=== PATIENT | male | born 1985 | race Two or more races ===

== ENCOUNTER 2021-08-26 09:28 | Outpatient (REF) | payer MEDICAID, SELFPAY ==
--- NOTE | ~2021-08-26 | XR_ITS ---
EXAMINATION: XR HAND, RIGHT CLINICAL INFORMATION: Status post fall, swelling and TTP over the right fourth and fifth metacarpal. COMPARISON: None TECHNIQUE: PA, lateral, and oblique views of the right hand. FINDINGS: There is a nondisplaced fracture base of fourth metacarpal. No additional fracture seen. The joint spaces are maintained normal. The soft tissues are normal. XR/XR hand RT min 3V IMPRESSION: Nondisplaced fracture base of fourth metacarpal.
== END 2021-08-26 09:29 | disposition home or self-care (01) ==
LOC: HO.XRAY 09:28
PROVIDERS: Absent Provider Internal Medicine; PCP Internal Medicine; Visit Provider Emergency Medicine
DX: M79.641 Pain in right hand (principal)
CPT/HCPCS: 73130

== ENCOUNTER 2022-04-15 03:25 | Emergency (ER) | payer MEDICAID, SELFPAY ==
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
[2022-04-15 04:05] VITALS: BP 128/82; PULSE 89; RESP 20; TEMP 36.7; O2SAT 97; BMI 19.8
[2022-04-15 07:29] VITALS: BP 122/71; PULSE 59; RESP 18; TEMP 36.4; O2SAT 95
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
[2022-04-15 09:04] VITALS: BP 125/73; PULSE 72; RESP 18; TEMP 36.2; O2SAT 99
== END 2022-04-15 09:08 | disposition home or self-care (01) ==
PROVIDERS: Emergency Provider Emergency Medicine
DX: S20.212A Contusion of left front wall of thorax, initial encounter (principal); V43.62XA Car passenger injured in collision with other type car in traffic accident, initial encounter; M54.2 Cervicalgia; F17.200 Nicotine dependence, unspecified, uncomplicated; Y93.89 Activity, other specified; Y92.414 Local residential or business street as the place of occurrence of the external cause; Y99.9 Unspecified external cause status
CPT/HCPCS: 71101; 99283

== ENCOUNTER 2023-09-03 10:55 | Outpatient (REF) | payer MEDICAID, SELFPAY ==
[2023-09-03 14:19] LABS: Cholesterol 139 mg/dL (<200); HDL Cholesterol 53 mg/dL (>40); LDL Cholesterol Calculated 70 mg/dL (<100); Triglycerides 82 mg/dL (<150)
[2023-09-03 14:38] LABS: Alanine Aminotransferase 22 U/L (0-40); Albumin Level 4.3 g/dL (3.5-5.0); Alkaline Phosphatase 79 U/L (39-117); Anion Gap 12 (12-20); Aspartate Amino Transferase 21 U/L (5-37); Bilirubin Total 0.3 mg/dL (0.0-1.0); Blood Urea Nitrogen 16 mg/dL (9-16); Calcium 9.6 mg/dL (8.4-10.2); Carbon Dioxide 26 mmol/L (22-29); Chloride 107 mmol/L (96-108); Estimated Glomerular Filt Rate > 60; Glucose Random 114 mg/dL (60-115); Potassium 4.2 mmol/L (3.3-5.1); Sodium 141 mmol/L (135-145); Total Protein 7.8 g/dL (6.5-8.0)
[2023-09-03 14:40] LABS: Estimated Average Glucose 108 mg/dL; Hemoglobin A1c % 5.4 % (<6.0)
[2023-09-03 14:52] LABS: TSH reflex Free T4 0.34 uIU/mL (0.32-4.0)
[2023-09-03 17:04] LABS: Reflex LDLD? No
== END 2023-09-03 10:56 | disposition home or self-care (01) ==
LOC: HO.HHCL 10:55
PROVIDERS: Visit Provider Family Medicine
DX: R03.0 Elevated blood-pressure reading, without diagnosis of hypertension (principal)
CPT/HCPCS: 36415; 80053; 80061; 83036; 84443

== ENCOUNTER 2023-10-07 09:59 | Outpatient (AMB) | payer MEDICAID, SELFPAY ==
--- NOTE | 2023-10-07 10:05 | MHC.OFFVIS ---
Intake Vital Signs 10/07/23 10:14 Weight 185 lb BP 137/89 Blood Pressure Location Lt brachial Position Sitting Pulse 94 Intake Visit Reasons: epidermal cyst Intake Note: This patient presents for an assessment for epidermal cyst. Patient c/o; reports no complaints at this time. Travelers' Aid Worker Required: No Accompanied by: Other Relationship Allergies acetaminophen [From TYLENOL] Allergy (Unknown, Unverified 10/07/23 10:15) HIVES, THROAT SWELLING HPI epidermal cyst HPI Details 38-year-old male referred for an epidermal cyst. [facility] Medical History (Updated 10/07/23 @ 10:19 by Ezio Benavidez MD) Epidermoid cyst of face No pertinent past medical history Social History (Updated 04/15/22 @ 07:45 by Nikole Llamas DO) Patient Tobacco Use Status: Current everyday Tobacco user Review of Systems Const Denies chills and Denies fever(s) Card Denies chest pain, Denies dyspnea and Denies dyspnea on exertion Resp Denies cough, Denies dyspnea and Denies dyspnea on exertion GI Denies hematochezia and Denies change in bowel habits Denies hematuria and Denies difficulty urinating Musc Denies back pain and Denies limited range of motion Neuro Denies focal weakness and Denies convulsions Psych Denies depression and Denies mood swings Physical Exam Const General: comfortable and no acute distress Orientation/consciousness: patient oriented x3 HEENT Other: Right preauricular area note of a well-defined epidermal inclusion cyst, about 1.8 cm in diameter, fairly mobile Neck Neck: Yes no lymphadenopathy Resp Auscultation: clear to auscultation bilaterally Cardio Rhythm: regular rhythm GI Palpation (GI): Soft to palpation, nontender and no guarding Neuro General: patient oriented x3 Assessment & Plan Assessment & Plan (1) Epidermoid cyst of face: Code(s): L72.0 - Epidermal cyst Plan: He has a preauricular cyst as described above. This is very mobile and is consistent with an epidermal inclusion cyst.I explained the option of proceeding with excision. I explained the technique of excision under local anesthesia. I reviewed the risks including but not limited to bleeding and infections, as well as the benefits and alternatives. He wants to proceed. This will be scheduled here in the office under local anesthesia. Coding Level of Care Code New Pt Level 3 (10165) Diagnoses Epidermoid cyst of face L72.0
[2023-10-07 10:14] VITALS: BP 137/89; PULSE 94
== END 2023-10-07 10:31 | disposition home or self-care (01) ==
PROVIDERS: PCP Family Medicine; Visit Provider Surgery
DX: L72.0 Epidermal cyst (principal)
CPT/HCPCS: 99203

== ENCOUNTER → 2023-10-07 09:59 | Outpatient (BNVA) | payer MEDICAID, SELFPAY | PROVIDERS: PCP Family Medicine; Visit Provider Surgery | DX: L72.0 Epidermal cyst (principal) | CPT/HCPCS: 99202 ==

== ENCOUNTER 2024-01-01 15:00 | Emergency (ER) | payer MEDICAID, SELFPAY ==
--- NOTE | 2024-01-01 15:05 | ED.GENADULT ---
HPI - General Adult General Chief complaint: Abdominal Pain Stated complaint: ULQ PAIN Time Seen by Provider: 01/01/24 15:20 Related Data Home Medications ?Medication ?Instructions ?Recorded ?Confirmed quetiapine 25 mg tablet 25 mg PO BEDTIME 10/07/23 varenicline 1 mg tablet 1 mg PO BID 10/07/23 Previous Rx's ?Medication ?Instructions ?Recorded cyclobenzaprine 10 mg tablet 10 mg PO TID PRN muscle spasm #14 04/15/22 tabs lidocaine 5 % topical patch 1 patch topical DAILY #30 ea 04/15/22 Allergies Allergy/AdvReac Type Severity Reaction Status Date / Time acetaminophen [From TYLENOL] Allergy Unknown HIVES, Unverified 10/07/23 10:15 THROAT SWELLING PMFSH Past Medical History Medical History (Updated 01/10/24 @ 11:51 by MOLLY Benjamin) Epidermoid cyst of face No pertinent past medical history Social History Social History Patient Tobacco Use Status: Current everyday Tobacco user Advance Directives: No Advance Directives Information Provided: No Physical Exam ED Vital Signs: BMI result Body Mass Index 27.8 Course Course Course Narrative: This is an RME: Additional HPI, ROS, PE not included below will be deferred to primary provider. 38 year old male presnts w/ LUQ pain reports kidney is exploding and leaking bile inside X 2 days. Comes in by ambulance. Screaming in the waiting room that this place sucks, and that he would rather go somewhere else. Plan- labs, urine appropriate to go back to the waiting room. Discharge Plan Discharge Clinical Impression: Eloped from emergency department Patient Disposition: Left W/O Completing Treatment Prescriptions: No Action cyclobenzaprine 10 mg tablet 10 mg PO TID PRN (Reason: muscle spasm) Qty: 14 0RF lidocaine 5 % adhesive patch,medicated 1 patch topical DAILY Qty: 30 0RF Rx Instructions: leave on most painful area for up to 12 hrs quetiapine 25 mg tablet 25 mg PO BEDTIME varenicline 1 mg tablet 1 mg PO BID Discharge Date/Time: 01/01/24 15:51
[2024-01-01 15:11] VITALS: BP 154/82; BP 158/84; PULSE 108; PULSE 80; RESP 20; TEMP 36.8; O2SAT 95; O2SAT 96; BMI 27.8
--- NOTE | 2024-01-01 15:21 | PC.NURSE ---
Patient was screaming and belligerent because he wanted to be put in a bed. States he's leaving to go to [facility] because it's a much better hospital.
== END 2024-01-01 15:51 | disposition left against medical advice (07) ==
LOC: HO.ED 15:25
PROVIDERS: Emergency Provider Emergency Medicine
DX: R10.12 Left upper quadrant pain (principal); F17.210 Nicotine dependence, cigarettes, uncomplicated; Z53.21 Procedure and treatment not carried out due to patient leaving prior to being seen by health care provider
CPT/HCPCS: 99281

== ENCOUNTER 2024-08-23 16:04 | Outpatient (REF) | payer MEDICAID, SELFPAY ==
[2024-08-24 03:59] LABS: Syphilis Screen Reactive (Nonreactive)
[2024-08-24 04:18] LABS: HBS Num1 519.99 mIU/mL (0-7.99); HBc Num1 0.15 S/CO (0.00-0.79); HBsAGNum1 0.42 S/CO (0.00-0.99); HIV AB/AG Nonreactive (Nonreactive); HIV Num 1 0.05 S/CO (0.00-0.99); Hepatitis A Antibody IgM 0.16 Index (0-0.79); Hepatitis B Core Antibody Nonreactive (Nonreactive); Hepatitis B Surface Antigen Negative (Negative); ~HepC Num1 0.15 S/CO (0.00-0.79); ~Hepatitis A Antibody IgM Nonreactive (Nonreactive); ~Hepatitis B Surface Antibody REACTIVE (Nonreactive); ~Hepatitis C Antibody Nonreactive (Nonreactive)
[2024-08-24 06:56] LABS: CT PCR NOT DETECTED (Not Detect.); NG PCR NOT DETECTED (Not Detect.)
[2024-08-31 15:08] LABS: RPR Quantitative Non-Reactive (Nonreactive); T.Pallidum Particle Agg Test Reactive (Nonreactive)
== END 2024-08-23 16:05 | disposition home or self-care (01) ==
LOC: HO.HHCL 16:04
PROVIDERS: Internal Medicine; Visit Provider Family Medicine
DX: Z20.2 Contact with and (suspected) exposure to infections with a predominantly sexual mode of transmission (principal); Z11.3 Encounter for screening for infections with a predominantly sexual mode of transmission; Z11.59 Encounter for screening for other viral diseases
CPT/HCPCS: 36415; 86592; 86704; 86706; 86709; 86780; 86803; 87340; 87389; 87491; 87591

== ENCOUNTER 2024-10-26 14:33 | Outpatient (AMB) | payer MEDICAID, SELFPAY ==
[2024-10-26 14:49] VITALS: BMI 27.7
--- NOTE | 2024-10-26 14:49 | A.OFFVIS_ITS ---
Vital Signs 10/26/24 14:49 Height 5 ft 7 in Weight 177 lb BMI 27.7 Intake Visit Reasons: COMMUNICATIONS COORDINATOR-Bilateral carpal tunnel syndrome Intake Note: Royce 39 yr old right hand dominant male presents today for bilateral hands. States his right is worse. States he has CTS, worse in the night time. He takes tramadol to help with pain but helps very little. States this wakes him up at night. He has tried braces with little help. No EMG done. Allergies acetaminophen [From TYLENOL] Allergy (Unknown, Unverified 10/26/24 14:52) HIVES, THROAT SWELLING HPI HPI COMMUNICATIONS COORDINATOR-Bilateral carpal tunnel syndrome: Details: Patient is a 39 yr old right hand dominant male presents today for numbness and tingling/pain of bilateral hands. States his right is worse. States he has CTS, worse in the night time. He takes tramadol to help with pain but helps very little. States this wakes him up at night. He has tried braces with little help. No EMG done. [facility] Medical History (Updated 10/30/24 @ 09:22 by MOLLY Chao) Epidermoid cyst of face No pertinent past medical history Social History (Updated 10/26/24 @ 14:53 by Kori Ramirez [facility]) Patient Tobacco Use Status: Current everyday Tobacco user Current occupational status: disabled Current occupation: rt hand Review of Systems Const All systems reviewed & are unremarkable except as noted in HPI and below Physical Exam Vital Signs: BMI result Body Mass Index 27.7 Extrem Other: Neuro: Normal sensation of the tips of all digits of bilateral hands today No thenar or intrinsic wasting. Good APB muscle firing and good finger cross. Vascular: Capillary refill brisk. ROM: Patient can make a fist and extend all their digits. Skin: No lacerations or abrasions noted. General: No ecchymosis. No erythema or evidence of infection. Assessment & Plan Assessment & Plan (1) Numbness and tingling in both hands: Code(s): R20.0 - Anesthesia of skin; R20.2 - Paresthesia of skin Category: Medical Plan 1. Numbness and tingling of bilateral hands Patient does not have any EMG and nerve conduction study done Patient is referred for EMG and nerve conduction study to assess the health of the nerves of bilateral upper extremities Patient was amenable to this plan Patient was educated on the potential operative interventions if his EMG and nerve conduction study are positive, and states adamantly that he will need to be put to sleep for his surgery, as he is far too anxious to have the surgery performed under local anesthesia Patient was advised that as a discussion that can be had after his EMG and nerve conduction study Patient will follow-up after EMG and nerve conduction study for results review and discussion of further treatment options if indicated, sooner with any acute concerns Orders: Orders NE nerve conduction velocity 10/26/24 R20.0 - Anesthesia of skin, R20.2 - Paresthesia of skin NE electromyogram (EMG) 10/26/24 R20.0 - Anesthesia of skin, R20.2 - Paresthesia of skin Coding Level of Care Code New Pt Level 3 (22429) Diagnoses Numbness and tingling in both hands R20.0; R20.2
== END 2024-10-26 15:04 | disposition home or self-care (01) ==
DX: R20.0 Anesthesia of skin (principal); R20.2 Paresthesia of skin
CPT/HCPCS: 99203

== ENCOUNTER → 2024-10-26 14:33 | Outpatient (BNVA) | payer MEDICAID, SELFPAY | DX: R20.0 Anesthesia of skin (principal); R20.2 Paresthesia of skin | CPT/HCPCS: 99212 ==

== ENCOUNTER 2024-12-01 15:12 | Outpatient (REF) | payer MEDICAID, SELFPAY ==
--- NOTE | 2024-12-01 15:16 | EMG_ITS ---
Chief complaint: Bilateral hand pain and numbness Reason for referral: Evaluate for Carpal Tunnel Syndrome Referred by: Jose Elias BARNES Procedure done: Bilateral upper extremities NCS/EMG Precautions and/or limitations: Poor tolerance of needle The limb temperature was monitored continuously and remained between 32-36 degrees C during the performance of the NCS. Nerve Conduction Studies Anti Sensory Summary Table ?Stim Site NR Onset (ms) Norm Onset (ms) Peak (ms) Norm Peak (ms) O-P Amp (?V) Norm O-P Amp Site1 Site2 Delta-0 (ms) Dist (cm) Dequan (m/s) Norm Dequan (m/s) Left Median Anti Sensory (2nd Digit) Wrist ? 2.8 3.4 <3.6 31.0 >10 Wrist 2nd Digit 2.8 14.0 50 Right Median Anti Sensory (2nd Digit) Wrist ? 2.3 3.2 <3.6 50.9 >10 Wrist 2nd Digit 2.3 14.0 61 Left Ulnar Anti Sensory (5th Digit) Wrist ? 2.5 3.4 <3.7 51.9 >15.0 Wrist 5th Digit 2.5 14.0 56 Right Ulnar Anti Sensory (5th Digit) Wrist ? 2.4 3.3 <3.7 52.7 >15.0 Wrist 5th Digit 2.4 14.0 58 Motor Summary Table ?Stim Site NR Onset (ms) Norm Onset (ms) O-P Amp (mV) Norm O-P Amp iAmp (mV) Amp (1st) (%) Site1 Site2 Delta-0 (ms) Dist (cm) Dequan (m/s) Norm Dequan (m/s) Left Median Motor (Abd Poll Brev) Wrist ? 3.8 <3.9 12.5 >4.5 14.8 100.0 Elbow Wrist 4.1 23.0 56 >45 Elbow ? 7.9 12.4 14.7 99.2 Right Median Motor (Abd Poll Brev) Wrist ? 3.6 <3.9 9.3 >4.5 11.1 100.0 Elbow Wrist 4.4 23.0 52 >45 Elbow ? 8.0 7.6 9.2 81.7 Left Ulnar Motor (Abd Dig Minimi) Wrist ? 3.0 <3.0 9.4 >5 11.3 100.0 B Elbow Wrist 3.6 21.0 58 >45 B Elbow ? 6.6 9.3 11.2 98.9 A Elbow B Elbow 1.5 10.0 67 >45 A Elbow ? 8.1 9.2 11.3 97.9 Right Ulnar Motor (Abd Dig Minimi) Wrist ? 2.9 <3.0 6.4 >5 8.7 100.0 B Elbow Wrist 3.7 21.0 57 >45 B Elbow ? 6.6 6.4 8.5 100.0 A Elbow B Elbow 1.6 10.0 63 >45 A Elbow ? 8.2 6.1 8.0 95.3 Comparison Summary Table ?Stim Site NR Peak (ms) Norm Peak (ms) P-T Amp (?V) Site1 Site2 Delta-P (ms) Norm Delta (ms) Right Median/Radial Dig I Comparison (Digit 1 - 10cm) Median ? 2.9 <2.9 31.0 Median Radial 0.1 Radial ? 3.0 <2.8 85.7 EMG ?Side Muscle Nerve Root Ins Act Fibs Psw Amp Dur Poly Recrt Int Pat Comment Left 1stDorInt Ulnar C8-T1 Nml Nml Nml Nml Nml 0 Nml Complete Left FlexCarRad Median C6-7 Nml Nml Nml Nml Nml 0 Nml Complete Left Biceps Musculocut C5-6 Nml Nml Nml Nml Nml 0 Nml Complete Left Triceps Radial C6-7-8 Nml Nml Nml Nml Nml 0 Nml Complete Left Deltoid Axillary C5-6 Nml Nml Nml Nml Nml 0 Nml Complete FINDINGS: All motor and sensory nerves tested showed normal latencies, amplitudes and conduction velocities. Concentric needle EMG was performed in selected muscles of the left upper extremity. Study did not reveal signs of electric abnormalities as shown in the table above. Deferred needle on right side, poor tolerance of needle. IMPRESSION: 1. This is a normal study. 2. There is no electrodiagnostic evidence for median neuropathy, ulnar neuropathy, brachial plexopathy, or cervical radiculopathy. Thank you for your kind referral. Anisha Mortensen MD, SAUD Board Certified, [place] Board of [employer] Medicine and Rehabilitation (ABPMR) Board Certified, [place] Board of Electrodiagnostic Medicine (ABEM) [place] [address] [facility]
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
--- OUTSIDE RECORDS SUMMARY | 2024-12-01 17:19 | XMS_ITS | Encounter Summary ---
Author Organization [employer] Address [address] [place] [address] Care Team Providers Care Polygraph Operator Name Role Phone Cnadelaria Peck MD Primary Care Provider [phone] Reason for Visit * Reason Comments Recovery Supports Encounter Details Date Type Department Care Team ([facility] st Contact Info) Description 11/21/2024 Patient Outreach [facility] [address] [place], [place] [id number] Amandeep Orellana Recovery Supports Social History Tobacco Use Types Packs/Day Years [...] AM EDT documented as of this encounter Progress Notes * Amandeep Orellana - 11/21/2024 1:49 PM EST I met with Royce little. Setting: in person at [facility] Recovery Wellness Goals worked on: Social Stability Action taken/next steps: Facilitated access to technology resources (computer support), Offered person centered recovery support, and Attended alcohol and drug free activity Additional comments: The fitness coach helped the participant by guiding him in printing some personal documents, whichcould be helpful for various needs in his recovery or other life matters. The fitness coach also provided information about the weekly support group meetings at the center.This is a great way to keep the participant connected to ongoing recovery support. Amandeep Orellana documented in this encounter Plan of Treatment Upcoming Encounters Date Type Department Care Team (Late st Contact Info) Description 12/19/2024 9:15 AM EDT Office Visit [facility] [address] [place] [address] Candelaria Peck MD [address] [place] [address] documented as of this encounter Visit Diagnoses Not on filedocumented in this encounter Additional Health Concerns Assessment Noted Time PHQ-9 Depression Total Score: 12 025 12:47 PM EST documented as of this encounter Care Teams Polygraph Operator Relationship Specialty Start Date End Date Candelaria Peck MD [address] [place] [id number] PCP - General Family Medicine 06/24/23 documented as of this encounter
--- OUTSIDE RECORDS SUMMARY | 2024-12-01 17:19 | XMS_ITS | Encounter Summary ---
Author Organization [employer] Address [address] [facility] 7t [place] [address] Care Team Providers Care Tug Master Name Role Phone Candelaria Peck MD Primary Care Provider [phone] Encounter Details Date Type Department Care Team (Latest Contact Info) Description 11/14/2024 Travel Social History Tobacco Use Types Packs/Day Years [...] Description 12/19/2024 9:15 AM EDT Office Visit [facility] [address] [place] [phone] Candelaria Peck MD [address] [place] [phone] documented as of this encounter Visit Diagnoses Not on filedocumented in this encounter Additional Health Concerns Assessment Noted Time PHQ-9 Depression Total Score: 12 025 12:47 PM EST documented as of this encounter Care Teams Tug Master Relationship Specialty Start Date End Date Candelaria Peck MD [address] [place] [phone] PCP - General Family Medicine 06/24/23 documented as of this encounter
--- OUTSIDE RECORDS SUMMARY | 2024-12-01 17:19 | XMS_ITS | Encounter Summary ---
Author Organization [facility] Address [address] [facility] 7t [place] [address] Care Team Providers Care Retail Sales Professional Name Role Phone Mayank Mora Primary Care Provider Unavail Candelaria Gray MD Primary Care Provider [phone] Encounter Details Date Type Department Care Team (Late st Contact Info) Description 05/20/2023 Telephone [facility] [address] [place] [phone] Abhilash Yeung Social History Tobacco Use Types Packs/Day Years Used Date Smoking Tobacco: Never Assessed Sex and Gender Information Value Date Recorded Sex Assigned at Male 08/03/2022 10:15 AM EDT Legal Sex Male 10:15 AM EDT Gender Identity Male 08/03/2022 10:15 AM EDT Sexual Orientation Something else 08/03/2022 10 :15 AM EDT documented as of this encounter Plan of Treatment Upcoming Encounters Date Type Department Care Team (Late st Contact Info) Description 12/19/2024 9:15 AM EDT Office Visit [facility] [address] [place] [phone] Candelaria Peck MD [address] [place] [address] documented as of this encounter Visit Diagnoses Not on filedocumented in this encounter Care Teams Retail Sales Professional Relationship Specialty Start Date End Date Mayank Mora AGNP PCP - General Family Medicine 07/09/22 06/23/23 Candelaria Peck MD [address] [place] [phone] PCP - General Family Medicine 06/24/23 documented as of this encounter
--- OUTSIDE RECORDS SUMMARY | 2024-12-01 17:19 | XMS_ITS | Clinical Summary ---
Author Organization [employer] Address [address] [facility] 7t [place] [address] Care Team Providers Care Chef French Name Role Phone Candelaria Peck MD Primary Care Provider [phone] Allergies Active Allergy Reactions Criticality Noted Date Comments Acetaminophen Hives 09/30/2016 Medications * This document contains information received from the source organization and may not represent a complete record from that organization. lidocaine (Lidoderm) 5 % patch Place 1 patch on the skin at bed time. Active triamcinolone (Kenalog) 0.1 % cream Apply topically at bedtime. 30 g 2 3 Active clobetasol (Temovate) 0.05 % ointmentIndicati ons:Scabies,Atop ic dermatitis, unspecified type Apply topically 2 times daily. 60 g 3 4 Active Diclofenac Sodium 1 % gel DIRECTED PLEASE DISPENSE P1 TOPICAL PAIN CREAM 1-3 GRAMS (PUMPS) TO AFFECTED AREA 3-4 TIMES A DAY 100 g 3 4 Active doxycycline (Vibra-Tabs) 100 MG tabletIndication s:History of syphilis Take 2 tabs once within 72 hours of unprotected intercourse. Repeat as needed. Take with a full glass of water and do not lie down for at least 30 minutes after. 30 tablet 4 Active QUEtiapine (SEROquel) 50 MG tabletIndication s:Bipolar affective disorder, remission status unspecified (CMS/HCC) Take 1 tablet (50 mg) by mouth at bedtime. 90 tablet 3 5 Active Blood Pressure Monitoring (Blood Pressure Kit) kitIndications:E levated blood pressure reading in office without diagnosis of hypertension Check blood pressure once daily and as needed 1 kit 5 Active traMADol (Ultram) 50 MG tabletIndication s:Bilateral leg pain Take 1 tablet (50 mg) by mouth Once daily as needed for severe pain. 28 tablet 5 Active varenicline (Chantix) 1 MG tablet Take 1 tablet (1 mg) by mouth 2 times daily. Take with full glass of water. 56 tablet 2 5 Active Active Problems Problem Noted Date Diagnosed Date Restless leg syndrome 10/12/2024 Epidermal cyst 12/01/2023 Assessment & Plan (12/01/2023 6:10 PM EST): - on right preauricular area - seen by general surgeon, Dr. Benavidez, on 10/07/23; being scheduled for excisional biopsy Severe anxiety 11/11/2023 Assessment & Plan (11/14/2024 1:27 PM EST): During IBH Consult Royce presenting with excessive worry/anxiety, difficulty controlling worry, anxiety/worry associated to restlessness and/or feeling keyed-up/On edge , easily fatigued , difficulty concentrating and/or mind going blank , irritability, muscle tension , and sleep disturbance difficulty falling asleep and difficulty staying asleep , Fear , and sense of dread and Fear of abandonment, Pattern of unstable and intense interpersonal relationships, Identity disturbance, Impulsivity, Affective instability, Feelings of emptiness, and Intense anger; for a period of 0-6 mo, for some symptoms in the context of relationship issues. Pt carries a diagnosis for Bipolar disorder and anxiety per his medical chart. Royce reported feeling distressed and emotionally overwhelmed. Stressors identified for increase of sxs are lack of trust and having a complicated romantic relationship. Royce is having a difficult time accepting and processing his emotions. clinician engaged patient with active/reflective listening. Reviewed and assessed for risk, current stressors and protective factors using open-ended questions. Provided information for [facility] programs, [facility] help line. Pt was self-referred to [facility] for OP individual therapy. Will follow-up with PCP (dr. Peck) regarding his medication. clinician will provide additional support during next medical appointment if needed. Suicidal behavior with attempted self-injury 05/2024 Cocaine use disorder 11/11/2023 Bilateral carpal tunnel syndrome 09/15/2023 Assessment & Plan (10/22/2024 4:19 PM EST): - patient has brace. Continue wearing brace at night - patient has APAP allergy. 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) I gave her bl wrist braces to wear prn and at bedtime Assessment & Plan (09/15/2023 5:35 AM EST): - pt states he has Hx CTS - wrist brace - judicious use of NSAIDs - evaluate with EMG/NCT Tobacco dependence 08/30/2023 Assessment & Plan (10/13/2024 6:01 AM EST): - preparation stage of change - previously tried varenicline - will restart varenicline Assessment & Plan (09/15/2023 5:21 AM EST): - preparation stage of change - previously tried varenicline - will restart varenicline Alcohol dependence 08/30/2023 Eczema 08/30/2023 Assessment & Plan (09/15/2023 5:19 AM EST): - avoid scratching - use hypoallergenic and unscented skin care / laundry / cleaning product - liberal moisturization with emollient (such as Vaseline) - judicious use of topical steroid Elevated blood pressure read ing in office without diagnosis of hypertension 08/30/2023 Assessment & Plan (10/13/2024 6:01 AM EST): - Goal BP < 140/90 per JNC-8 and < 130/80 per ACC/AHA guideline (Treatment threshold >= 140/90) - BP not at goal - Continue working on lifestyle modifications - Recommended self-monitoring BP. BP monitor script sent to [facility] pharmacy -Follow up in 3-6 mo, sooner if any problem arises Assessment & Plan (09/15/2023 5:19 AM EST): - Goal BP < 140/90 per JNC-8 and < 130/80 per ACC/AHA guideline (Treatment threshold >= 140/90) - BP not at goal - Continue working on lifestyle modifications - Recommended self-monitoring BP. BP monitor script sent to [facility] pharmacy -Follow up in 3-6 mo, sooner if any problem arises Chronic low back pain 09/25/2016 Assessment & Plan (09/15/2023 5:30 AM EST): - diclofenac topical - lidocaine topical - home exercise program Bipolar disorder 08/21/2016 Assessment & Plan (10/22/2024 4:24 PM EST): - behavioral health service provider: Kishor Pool - Hx psychiatric hospitalization - continue quetiapine 50 mg at bedtime - previously taking oxcarbazepine 100 mg TWO tablets daily - continue current treatment plan Assessment & Plan (09/15/2023 5:33 AM EST): - Hx psychiatric hospitalization - pt is able to contract his safety today - restart quetiapine 25 mg at bedtime - restart oxcarbazepine 100 mg TWO tablets daily (per pt, but our record shows 300 mg bid); need to reconcile - refer to [facility] History of syphilis 08/21/2016 Assessment & Plan (10/22/2024 4:26 PM EST): - discussed about consensual sex and safer sexual practice / harm reduction - pt declines PrEP at this time - patient is prescribed doxyPEP Assessment & Plan (09/15/2023 5:22 AM EST): - discussed about consensual sex and safer sexual practice / harm reduction - pt declines PrEP at this time Encounters * This document contains information received from the source organization and may not represent a complete record from that organization. Date Type Department Care Team Description 11/29/2024 Orders Only [facility] [address] [place] [address] Greer Mustafa RN 11/21/2024 Patient Outreach [address] [address] Amandeep Orellana Recovery Supports 11/14/2024 Travel 10/12/2024 11:30 AM EST [address] [place] [address] Candelaria Peck MD Elevated blood pressure reading in office without diagnosis of hypertension (Primary Dx); Bipolar affective disorder, remission status unspecified (CMS/HCC); Bilateral carpal tunnel syndrome; Tobacco dependence; History of syphilis; Screening for diabetes mellitus; Bilateral leg pain; Paresthesia; Restless leg syndrome; Dietary counseling; Exercise counseling; Overweight 10/12/2024 Travel 10/09/[address] [address] Candelaria Peck MD Appointment Request 09/21/2024 Patient Outreach [address] [phone] Param Benavidez Recovery Supports 09/08/[address] [address] Candelaria Peck MD Appointment Request 09/07/2024 2:00 PM EST Office Visit [address] [address] Callie Ralph ANP Radicular leg pain (Primary Dx); Chronic low back pain, unspecified back pain laterality, unspecified whether sciatica present; History of syphilis 09/07/2024 Travel 09/07/[address] [address] Candelaria Peck MD Nurse Triage from Last 3 Months Immunizations Name Administration Dates Next Due Influenza injectable quadriv alent IIV4 with preservative 07/01/2015 Pfizer Covid-19 Vaccine 12+ 02/10/2021 Social History Tobacco Use Types Packs/Day Years Used Date Smoking Tobacco: Every Day Cigarettes Passive Smoke Exposure: Current Smokeless Tobacco: Never Tobacco Cessation:Ready to Q uit: Not Asked; Counseling Given: Not Answered Alcohol Use Standard Drinks/Week Comments Yes 0 [...] your housing situation today? I have amish lisa 09/07/[address] you li [...] Something else 08/03/2022 10 :15 AM EDT Last Filed Vital Signs Vital Sign Reading Time Taken Comments Blood Pressure 130/98 10/12/2024 12:34 PM EST Pulse 63 10/12/2024 11:49 AM EST Temperature 36.1 ??C (97 ??F) 10/12/2024 11:49 AM EST Respiratory Rate 20 10/12/2024 11:49 AM EST Oxygen Saturation 99% 10/12/2024 11:49 AM EST Inhaled Oxygen Concentration - - Weight 90.3 kg (199 lb) 10/12/2024 11:49 AM EST Height 177.8 cm (5' 10 ) 10/12/2024 11:49 AM EST Body Mass Index 28.55 10/12/2024 11:49 AM EST Plan of Treatment Upcoming Encounters Date Type Department Care Team (Late st Contact Info) Description 12/19/2024 9:15 AM EDT Office Visit [facility] [address], [place] [phone] Candelaria Peck MD [address] [place], [place] [phone] Health Maintenance Due Date Last Done Comments Family Planning (PISQ) 2002 DTaP/Tdap/Td Vaccines (1 - Tdap) 2006 Hepatitis A Vaccines (1 of 2 - Risk 2-dose series) 2006 Pneumococcal Vaccine: Pediatrics (0 to 5 Years) and At-Risk Patients (6 to 49) Years) (1 of 2 - PCV) 2006 COVID-19 Vaccine (2 - season) 2024 02/10/2021 Influenza Vaccine (#1) 2024 07/01/2015 Depression Monitoring (PHQ-9) 05/14/2025 11/14/2024, 11/14/2024 Alcohol/Substance Use Screening 09/07/2025 09/07/2024 SDOH Screening 09/07/2025 09/07/2024 Tobacco Screening 10/22/2025 10/22/2024 Depression Screening 11/14/2025 11/14/2024, 11/14/19 25 Lipid Panel 09/03/2028 09/03/2023 Zoster Vaccines (1 of 2) 2037 RSV Patients and Patients Aged 60 years or older (1 - 1-dose 75+ series) 2062 HIV Screening Completed 11/14/2024, 08/05, 06/15/2022 Hepatitis C Screening Completed 11/14/2024 , 08/23/2024, 06/15/2022, Additional history exists HIB Vaccines Aged Out No longer eligi ble based on patient's age to complete this topic HPV Vaccines Aged Out No longer eligi ble based on patient's age to complete this topic Hepatitis B Vaccines Discontinued IPV Vaccines Aged Out No longer eligi ble based on patient's age to complete this topic Meningococcal Vaccine Aged Out No ema london eligible based on patient's age to complete this topic RSV under 20 months Aged Out No longe r eligible based on patient's age to complete this topic Rotavirus Vaccines Aged Out No longer eligible based on patient's age to complete this topic Procedures Procedure Name Priority Date/Time Associated Diagnosis Comments HIV ANTIBODY/ANTIGEN ([facility]) Routine 11/14/2024 HEPATITIS C ANTIBODY ([facility]) Routine 11/14/2024 SYPHILIS ABS ([facility]) Routine 11/14/2024 CHLAMYDIA/GONORRHEA THROAT SWAB ([facility]) Routine 11/14/2024 CHLAMYDIA/GONORRHEA RECTAL SWAB ([facility]) Routine 11/14/2024 AMB REFERRAL TO ORTHOPAEDIC SURGERY Routine 10/26/2024 Bilateral carpal tunnel syndrome LIPID PANEL WITH REFLEX TO DIRECT LDL Routine 09/03/2023 10:57 AM EST Elevated blood pressure reading in office without diagnosis of hypertension from Last 3 Months or Most Recently Relevant to Health Maintenance Results * Chlamydia/Gonorrhea, Rectal Swab ([facility]) (11/14/2024) Chlamydia Rectal Swab Negative Negative, Indeterminate, None Detected, Invalid, Specimen unsatisfactory for evaluation Gonorrhea Rectal Swab Negative Negative, Indeterminate, None Detected, Invalid, Specimen unsatisfactory for evaluation Swab 11/14/2024 Historical Provider LAB MICROBIOLOGY - GENERA L ORDERABLES Final Result * Chlamydia/Gonorrhea Throat Swab ([facility]) (11/14/2024) Chlamydia Throat Swab Negative Gonorrhea Throat Swab Negative Swab 11/14/2024 us Historical Provider MD LAB MICROBIOLOGY - GENERA L ORDERABLES Final Result * (ABNORMAL) Syphilis Antibodies ([facility]) (11/14/2024) Pathologist [facility] Syphilis Abs Reactive(A) Borderline, Nonreactive, Weakly Reactive, Inconclusive, Specimen unsatisfactory for evaluation Syphilis RPR Reactive Blood Venous blood specimen / Unknown 11/14/2024 [facility] Provider MD LAB BLOOD ORDERABLES Kathy l Result * Hepatitis C Antibody ([facility]) (11/14/2024) Pathologist [facility] Hepatitis C Ab Nonreactive Blood 11/14/2024 Result [facility] Provider MD LAB BLOOD ORDERABLES Kathy l Result * HIV Ab/Ag ([facility]) (11/14/2024) Pathologist [facility] HIV Ag/Ab Nonreactive Blood 11/14/2024 Result [facility] Provider MD LAB BLOOD ORDERABLES Kathy l Result * Lipid Panel with Reflex to Direct LDL (09/03/2023 10:57 AM EST) Pathologist [facility] Triglycerides 82 <150 mg/dL [facility] Comment:Desirable Triglyceri de: less than 150 mg/dLBorderline High Triglyceride 150-199 mg/dLHigh Triglyceride: 200-499 mg/dLVery High Triglyceride: greater than or equal to 5OO mg/dL Cholesterol 139 <200 mg/dL [facility] Comment:Desirable Cholestero l: less than 200 mg/dLBorderline High Cholesterol: 200-239 mg/dLHigh Cholesterol: greater than 239 mg/dL LDL Cholesterol Calculated 70 <100 mg/dL [facility] Comment:Desirable LDL: less than 100 mg/dLNear Optimal/Above Optimal LDL: 110- 129 mg/dLBorderline High LDL: 130-159 mg/dLHigh LDL: 160-189 mg/dLVery High LDL: greater than or equal to 190 mg/dL HDL Cholesterol 53 >40 mg/dL [facility] Comment:Desirable HDL: great er than 40 mg/dL Note: This HDL assay may give artificially low results in patients with liver disease. Blood 09/03/2023 10:5 7 AM EST 09/03/2023 1:50 PM EST Candelaria Peck MD LAB BLOOD ORDERABLES Final Resul t [facility] [address] [place] [address] [phone] from Last 3 Months or Most Recently Relevant to Health Maintenance Insurance Care Teams Chef French Relationship Specialty Start Date End Date Candelaria Peck MD [address] [place] [address] PCP - General Family Medicine 06/24/23
== END 2024-12-01 15:13 | disposition home or self-care (01) ==
LOC: HO.NEURO 15:12
PROVIDERS: PCP Family Medicine; Visit Provider Family Medicine
DX: R20.0 Anesthesia of skin (principal); R20.2 Paresthesia of skin
CPT/HCPCS: 95886; 95911

== ENCOUNTER → 2024-12-01 15:16 | Outpatient (BNV) | payer MEDICAID, SELFPAY | PROVIDERS: PCP Family Medicine; Visit Provider Physical Medicine & Rehabilitation | DX: R20.0 Anesthesia of skin (principal); R20.2 Paresthesia of skin; M79.642 Pain in left hand; M79.641 Pain in right hand | CPT/HCPCS: 95886; 95911 ==